=== PATIENT | female | born 1975 | race Caucasian/White ===

== ENCOUNTER 2024-06-24 21:56 | Emergency (ER) | payer SELFPAY ==
[~2024-06-24] VITALS: Ht 162.6 cm; Wt 68.0 kg
[2024-06-24 21:59] VITALS: O2SAT 96
[2024-06-24] MEDS: ONDANSETRON HCL 4MG/2ML INJ IV STA (23:46)
[2024-06-24] MEDS: MORPHINE SULFATE 4 MG/ML INJ (FOR IV/IM USE) IV STA (23:46)
[2024-06-25] MEDS: KETOROLAC 15MG/ML VIAL IV ONE (04:26)
[2024-06-25] MEDS ORDERED: IBUP-2029 MT (04:45)
[2024-06-25] MEDS ORDERED: METH-653 MT (04:45)
[2024-06-25 05:07] VITALS: BP 105/66; PULSE 108; RESP 15; TEMP 36.4; O2SAT 95
== END 2024-06-25 06:46 | disposition home or self-care (01) ==
LOC: ER 21:56
DX: S70.02XA Contusion of left hip, initial encounter (principal); S90.02XA Contusion of left ankle, initial encounter; S70.12XA Contusion of left thigh, initial encounter; F41.9 Anxiety disorder, unspecified; W01.0XXA Fall on same level from slipping, tripping and stumbling without subsequent striking against object, initial encounter; Y93.89 Activity, other specified; Y92.89 Other specified places as the place of occurrence of the external cause; Y99.8 Other external cause status
CPT/HCPCS: 99285; 96374; 96375 ×2; 73551; 71101; 72170; 73030; 73560; 73590; 73610; J2405; J2270; J1885